=== PATIENT | female | born 1965 | race Caucasian/White ===

== ENCOUNTER 2017-11-13 05:55 | Day surgery (SDC) | payer OTHER ==
[2017-11-13] MEDS ORDERED: DIPRIVAN 200 MG/20 ML IV ONE (05:56)
[2017-11-13] MEDS ORDERED: Lactated Ringers 1,000 ML IV ONE (06:30)
[2017-11-13] MEDS ORDERED: Lactated Ringers 1,000 ML IV SCH (06:30)
--- NOTE | 2017-11-13 07:55 | OP ---
SURGERY DATE/TIME: 11/13/2017 0707 PREOPERATIVE DIAGNOSIS: Screening colonoscopy. POSTOPERATIVE DIAGNOSIS: Normal colon. PROCEDURE: Colonoscopy. SURGEON: Dheeraj Clark M.D. ANESTHESIA: MAC by Sammy Jimenez CRNA. ESTIMATED BLOOD LOSS: None. SPECIMENS: None. DESCRIPTION OF PROCEDURE: After informed written consent was obtained, the patient was taken to the endoscopy suite. She underwent monitored anesthesia. Digital rectal exam was then performed and showed normal sphincter tone and no internal lesions. The scope was inserted into the rectum and sequentially the entire colonic mucosa was traversed. The level of cecum was reached and verified with direct visualization of ileocecal valve. Upon withdrawal careful mucosal inspection revealed no gross abnormalities. Prep was noted to be good. Prior to withdrawal retroflexion was performed and showed some minimal internal hemorrhoids but no other lesions. The scope was removed and the patient was transferred to the recovery room in excellent condition.
[2017-11-13 08:47] VITALS: BP 140/91; PULSE 80; O2SAT 98
== END 2017-11-13 08:40 | disposition home or self-care (01) ==
LOC: SDC 05:55
PROVIDERS: ATTEND Family Medicine
DX: Z12.11 Encounter for screening for malignant neoplasm of colon (principal)
CPT/HCPCS: J2704